=== PATIENT | female | born 2000 | race Two or more races ===

== ENCOUNTER 2025-02-07 20:32 | Emergency (ER) | payer MEDICAID, OTHER ==
[~2025-02-07] VITALS: Ht 160 cm; Wt 104.0 kg
[2025-02-07 20:37] VITALS: BP 140/84; PULSE 80; RESP 18; TEMP 98.2; O2SAT 96
[2025-02-07] MEDS ORDERED: BAC09TP TOP (22:30)
[2025-02-07] MEDS ORDERED: AUG875T PO (22:30)
--- NOTE | 2025-02-07 23:10 | ED.PDOC ---
History of Present Illness HPI Comments 24-year-old with a history of asthma-well controlled who presents to the ER with her mother for the evaluation of a dog bite. Patient reports dog bite on her right weight with intractable pain happened an hour earlier when she was going to the mailbox, she states that a black dog appeared out of a sudden, was not appearing hostile or rapid, the dog bit her once and ran off. She denies any fever/chills/nausea/vomiting or any purulent drainage. Patient had her mother thinks that the dog was their neighbors, and came out of the fence, they would like to look for the dog and quarantine it. Denies taking any home medication or any allergy Chief Complaint: Animal Bite Time Seen by MD: 20:49 Allergies: Coded Allergies: NO KNOWN ALLERGIES (Unverified , 02/07/25) Home Meds Active Scripts Bacitracin (Bacitracin Oint) 1 Applic Ap, 1 APPLIC TOP BIDP PRN for 10 Days, #20 APPLIC Prov:ARAM TEJEDA RESIDENT 02/07/25 Amoxicillin & Pot Clavulanate (AUGMENTIN TABLET) 875 Mg Tb, 875 MG PO BID for 5 Days, #10 TAB 0 Refills Prov:ARAM TEJEDA RESIDENT 02/07/25 Mode of Arrival: Wheelchair Past Medical History Past Medical History (Other): Asthma Constitutional: denies: chills, diaphoresis, fatigue, fever, malaise, sweats, weakness, others EENTM: denies: blurred vision, double vision, ear bleeding, ear discharge, ear drainage, ear pain, ear ringing, eye pain, eye redness, hearing loss, mouth pain, mouth swelling, nasal discharge, nose bleeding, nose congestion, nose pain, photophobia, tearing, throat pain, throat swelling, voice changes, others Respiratory: denies: cough, hemoptysis, orthopnea, SOB at rest, shortness of breath, SOB with excertion, stridor, wheezing, others Cardiovascular: denies: chest pain, dizzy spells, diaphoresis, Dyspnea on exertion, edema, irregular heart beat, left arm pain, lightheadedness, palpitations, PND, syncope, others Gastrointestinal: denies: abdomen distended, abdominal pain, blood streaked bowels, constipated, diarrhea, dysphagia, difficulty swallowing, hematemesis, melena, nausea, poor appetite, poor fluid intake, rectal bleeding, rectal pain, vomiting, others Genitourinary: denies: abnormal vagina bleeding, burning, dyspareunia, dysuria, flank pain, frequency, hematuria, incontinence, pain, , vagina discharge, urgency, others Neurological: denies: dizziness, fainting, headache, left sided numbness, left sided weakness, numbness, paresthesia, pre-existing deficit, right sided numbness, right sided weakness, seizure, speech problems, tingling, tremors, weakness, others Musculoskeletal: denies: back pain, gout, joint pain, joint swelling, muscle pain, muscle stiffness, neck pain, others Integumetry: reports: laceration, wounds (Right foot) Allergic/Immunocompromised: denies: Difficulty Healing, Frequent Infections, Hives, Itching, others Hematologic/Lymphatic: denies: anemia, blood clots, easy bleeding, easy bruising, swollen glands, others Endocrine: denies: excessive hunger, excessive sweating, excessive thirst, excessive urination, flushing, intolerance to cold, intolerance to heat, unexplained weight gain, unexplained weight loss, others Psychiatric: denies: anxiety, bipolar disorder, depression, hopeless, panic disorder, schizophrenia, sleepless, suicidal, others Physical Exam General Appearance: No Apparent Distress, Normal HEENT: Normal ENT Inspection, Pharynx Normal, TMs Normal Neck: Full Range of Motion, Non-Tender, Normal, Normal Inspection Respiratory: Chest Non-Tender, Lungs Clear, No Accessory Muscle Use, No Respiratory Distress, Normal Breath Sounds Cardiovascular: No Edema, No JVD, No Murmur, No Gallop, Normal Peripheral Pulses, Regular Rate/Rhythm Breast Exam: Deferred Gastrointestinal: No Organomegaly, Non Tender, No Pulsatile Mass, Normal Bowel Sounds, Soft Genitalia: Deferred Pelvic: Deferred Rectal: Deferred Extremities: No calf tenderness, Normal capillary refill, Normal inspection, Normal range of motion, Swelling, Tender, Other (2 X 1 cm wound on the dorsal for face of the right foot, erythematous but not draining purulent substance) Musculoskeletal : Apperance: Normal Neurologic: Alert, 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 Was a procedure done?: No Differential Dx Considerations may include: Dog bite/cellulitis X-Ray, Labs, Meds, VS Vital Signs Date Time Temp Pulse Resp B/P (MAP) Pulse Ox O2 Delivery O2 Flow Rate FiO2 02/07/25 20:37 98.2 80 18 140/84 96 98.2 Images Reviewed?: Images reviewed and evaluated by me Time of 1ST Reevaluation: 22:00 Reevaluation 1ST: Unchanged Time of 2ND Reevaluation: 23:00 Reevaluation 2ND: Unchanged Time of 3RD Reevaluation: 00:00 Reevaluation 3RD: Improved Consultation: PCP Patient Education/Counseling: Diagnosis, Treatment, Prognosis, Need For Follow Up Family Education/Counseling: Diagnosis, Treatment, Prognosis, Need For Follow Up SEPSIS Sepsis Screen Date sepsis recognized/suspect: Feb 07, 2025 Time Sepsis recognized/suspect: 2042 Recent Procedure: No On Antibiotic Therapy: No Respiratory Rate >20: No Heart Rate >90: No Temp<36 C (96.8 F) or >38.3 C: No SBP <90 or MAP <65 mmHG: No New Acute Mental Status Change: No Is the patient on CPAP, BIPAP,: No Physician Orders Cleanse Wound With Ns (02/07/25 21:12) Clean Wound With: (02/07/25 21:12) Vital Signs Date Time Temp Pulse Resp B/P (MAP) Pulse Ox O2 Delivery O2 Flow Rate FiO2 02/07/25 20:37 98.2 80 18 140/84 96 98.2 Departure 1 Departure Time of Disposition: 00:00 Impression: Primary Impression: Dog bite of dorsum of foot Disposition: HOME / SELF CARE / HOMELESS Condition: Stable Additional Instructions: Follow up with primary care physician Wound was clean and irrigated with NS, Betadine and topical bacitracin was applied Tablet Augmentin 875 b.i.d. for 5 days Bacitracin ointment b.i.d. p.r.n. Do not close the wound, enema bites originally left open to heal to prevent tripping bacteria inside Please go to the ER or call your doctor if you noticed redness swelling warmth or pus from the bite, fever or chills, numbness, trouble moving fingers or joints Do not try to catch or handle the stray cat or dogs e-Prescriptions Bacitracin (Bacitracin Oint) 1 Applic Ap 1 APPLIC TOP BIDP PRN for 10 Days, #20 APPLIC Prov: ARAM TEJEDA RESIDENT 02/07/25 Amoxicillin & Pot Clavulanate (AUGMENTIN TABLET) 875 Mg Tb 875 MG PO BID for 5 Days, #10 TAB 0 Refills Prov: ARAM TEJEDA 02/07/25 Discharged With: Self Critical Care Note Critical Care Time?: No Stability Stability form required: No ARAM TEJEDA RESIDENT Feb 07, 2025 23:10
[2025-02-08] MEDS: BACITRACIN-POLYMYXIN B TOPICAL OINT UD TOP ONE (02:10)
[2025-02-08] MEDS: KETOROLAC TROMETH 30 MG/ML 1ML VIAL IM ONE (02:10)
[2025-02-08] MEDS: AMOXICILLIN/CLAVUL 875 MG TAB PO ONE (02:12)
[2025-02-08] MEDS: BACITRACIN TOP OINT 1 UD PKG TOP ONE (02:48)
== END 2025-02-08 02:52 | disposition home or self-care (01) ==
LOC: ER 20:32
DX: S91.351A Open bite, right foot, initial encounter (principal); J45.909 Unspecified asthma, uncomplicated; W54.0XXA Bitten by dog, initial encounter; Y93.89 Activity, other specified; Y92.89 Other specified places as the place of occurrence of the external cause; Y99.8 Other external cause status
CPT/HCPCS: 96372; 99283; J1885